=== PATIENT | male | born 1960 | race African-American/Black ===

== ENCOUNTER 2017-04-01 13:42 | Inpatient (IN) | payer OTHER ==
[~2017-04-01] VITALS: Ht 170.2 cm; Wt 81.6 kg
[~2017-04-01 13:42] MED LIST: ATENOLOL25 MG ORAL; COUMADIN1 MG ORAL; ECOTRIN325 MG ORAL; METFORMIN HCL500 M1 ORAL; SIMVASTATIN5 MG ORAL; VENTOLIN HFA18 GM INH
[2017-04-01 13:54] VITALS: BP 180/75
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
[2017-04-01] MEDS ORDERED: Morphine Sulfate 4mg/ml Inj IVP ONE (14:30)
[2017-04-01 14:40] LABS: BASOPHILS % (AUTO) 1.4 % (0.0-2.0); LYMPHOCYTES % (AUTO) 39.2 % (20.0-45.0); MEAN CORPUSCULAR HEMOGLOBIN 28.7 PG (27.0-31.0); MEAN CORPUSCULAR HGB CONC 32.2 G/DL (32.0-36.0); MEAN CORPUSCULAR VOLUME 89 FL (80-99); MEAN PLATELET VOLUME 7.1 FL (6.5-10.1); MONOCYTES % (AUTO) 12.4 % (1.0-10.0); PLATELET COUNT 228 K/UL (150-450); RED BLOOD COUNT 4.93 M/UL (4.70-6.10); RED CELL DISTRIBUTION WIDTH 12.9 % (11.6-14.8); WHITE BLOOD COUNT 5.5 K/UL (4.8-10.8)
[2017-04-01 14:54] LABS: ALANINE AMINOTRANSFERASE 24 U/L (3-41); ALBUMIN/GLOBULIN RATIO 1.3 (1.0-2.7); ANION GAP 13 (5-15); ASPARTATE AMINO TRANSFERASE 25 U/L (5-40); CARBON DIOXIDE 26 mEQ/L (20-30); CHLORIDE 99 mEQ/L (98-107); CREATININE 1.2 mg/dL (0.7-1.2); GLOMERULAR FILTRATION RATE > 60 mL/min (>60); HEMOLYSIS 8; POTASSIUM 4.3 mEQ/L (3.4-4.9); SODIUM 138 mEQ/L (135-145); TOTAL PROTEIN 7.2 g/dL (6.6-8.7)
[2017-04-01 14:56] LABS: TROPONIN I < 0.30 ng/mL (<=0.30)
[2017-04-01 15:06] LABS: CKMB 5.1 ng/mL (< 6.7)
--- NOTE | 2017-04-01 15:22 | Diagnostic Imaging Report ---
Indication: PAIN Technique: One view of the chest Comparison: none Findings: Suboptimal inspiration. The heart is borderline enlarged. Aorta is somewhat ectatic. Impression: No acute process
[2017-04-01 15:39] VITALS: BP 162/86
[2017-04-01] MEDS ORDERED: DuoNeb 0.5-3(2.5)mg/3ml neb HHN PRN (17:15)
[2017-04-01] MEDS ORDERED: Diltiazem 25mg/5ml IV PRN (17:15)
[2017-04-01] MEDS ORDERED: Miralax 17gm pkt ORAL PRN (17:15)
[2017-04-01] MEDS ORDERED: Enalaprilat 2.5mg/2ml Inj IV PRN (17:15)
[2017-04-01] MEDS ORDERED: Ketorolac 30mg Inj IV PRN (17:15)
[2017-04-01] MEDS ORDERED: Morphine Sulfate 2mg/ml Inj IVP PRN (17:15)
[2017-04-01] MEDS ORDERED: Nitroglycerin Subl 0.4mg tab (Bottle Of 25) SL PRN (17:30)
[2017-04-01] MEDS ORDERED: ASPIRIN81 MG ORAL (18:01)
[2017-04-01] MEDS ORDERED: ATENOLOL50 MG ORAL (18:06)
[2017-04-01 18:07] VITALS: BP 138/84
[2017-04-01] MEDS ORDERED: METFORMIN HCL850 M1 ORAL (18:08)
[2017-04-01] MEDS ORDERED: WARFARIN SODIUM1 MG ORAL (18:10)
[2017-04-01] MEDS ORDERED: ATORVASTATIN CA40 MG ORAL (18:12)
[2017-04-01] MEDS ORDERED: LISINOPRIL20 MG ORAL (18:13)
[2017-04-01] MEDS ORDERED: HYDROCHLOROTHIA25 MG ORAL (18:14)
[2017-04-01] MEDS ORDERED: PHENYTOIN SODI100 MG ORAL (18:16)
[2017-04-01 20:30] VITALS: BP 163/94
[2017-04-01] MEDS: NovoLOG Insulin Flexpen SUBQ SCH (21:00)
[2017-04-01] MEDS: Heparin 5000 units/ml inj SUBQ SCH (22:01)
[2017-04-01 22:24] VITALS: BP 157/96
[2017-04-02] VITALS (7 sets, daily range): BP systolic 139–163; BP diastolic 71–113
[2017-04-02] MEDS: Heparin 5000 units/ml inj SUBQ SCH (06:00)
[2017-04-02] MEDS: NovoLOG Insulin Flexpen SUBQ SCH ×3 (06:30→16:30)
[2017-04-02 07:56] LABS: BASOPHILS % (AUTO) 0.8 % (0.0-2.0); EOSINOPHILS % (AUTO) 2.6 % (0.0-3.0); LYMPHOCYTES % (AUTO) 37.8 % (20.0-45.0); MEAN CORPUSCULAR HEMOGLOBIN 29.3 PG (27.0-31.0); MEAN CORPUSCULAR HGB CONC 32.7 G/DL (32.0-36.0); MEAN CORPUSCULAR VOLUME 90 FL (80-99); MEAN PLATELET VOLUME 7.3 FL (6.5-10.1); MONOCYTES % (AUTO) 13.9 % (1.0-10.0); NEUTROPHILS % (AUTO) 44.9 % (45.0-75.0); PLATELET COUNT 207 K/UL (150-450); RED BLOOD COUNT 4.94 M/UL (4.70-6.10); RED CELL DISTRIBUTION WIDTH 12.8 % (11.6-14.8); WHITE BLOOD COUNT 5.3 K/UL (4.8-10.8)
[2017-04-02 07:59] LABS: PROTHROMBIN TIME 10.5 SEC (9.30-11.50)
[2017-04-02 08:05] LABS: CHOLESTEROL/HDL RATIO 7.5 (3.3-4.4); CRP QUANT 0.5 mg/dL (< 0.5)
[2017-04-02 08:12] LABS: TROPONIN I < 0.30 ng/mL (<=0.30)
[2017-04-02 08:15] LABS: THYROID STIMULATING HORMONE 0.865 uIU/mL (0.300-4.500)
[2017-04-02] MEDS ORDERED: Aspirin Baby 81mg ORAL SCH (09:00)
--- NOTE | 2017-04-02 09:07 | Cardiology Progress Note ---
Assessment/Plan Assessment/Plan acute los o f consciouness siezure vs syncope seizure do noncompliance with meds dvt hs dm htn cad hsi of stent hyperlipidemia orthosttic vitals anti hyeoprtensive statin ecotrin all trop neg repeat ekg echo need neuro evaluation for seizure hs and noncomopliance [id number] Objective Last 24 Hour Vital Signs Date Time Temp Pulse Resp B/P Pulse Ox O2 Delivery O2 Flow Rate FiO2 04/02/17 08:03 97.5 88 20 163/113 Room Air 04/02/17 04:30 150/90 04/02/17 04:00 97.7 72 20 151/111 97 Room Air 04/02/17 04:00 73 04/02/17 02:20 97.5 69 16 144/71 95 Room Air 04/02/17 01:48 69 16 144/71 95 Room Air 04/02/17 00:15 67 16 163/87 99 Room Air 04/01/17 22:24 71 18 157/96 98 Room Air 04/01/17 20:30 80 15 163/94 96 Room Air 04/01/17 18:07 73 17 138/84 99 Room Air 04/01/17 15:41 97.5 04/01/17 15:39 97.5 75 16 162/86 99 Room Air 04/01/17 13:54 97.5 16 180/75 99 Room Air 04/01/17 13:35 97.5 80 16 180/75 99 Room Air Intake and Output 04/01/17 04/02/17 19:00 07:00 Intake Total 0 ml 200 ml Output Total 650 ml Balance 0 ml -450 ml Intake Oral 0 ml 200 ml Output Urine Total 650 ml # Voids 2 Laboratory Tests Test 04/01/17 14:10 04/01/17 18:40 04/02/17 06:55 White Blood Count 5.5 K/UL (4.8-10.8) 5.3 K/UL (4.8-10.8) Red Blood Count 4.93 M/UL (4.70-6.10) 4.94 M/UL (4.70-6.10) Hemoglobin 14.2 G/DL (14.2-18.0) 14.5 G/DL (14.2-18.0) Hematocrit 44.0 % (42.0-52.0) 44.3 % (42.0-52.0) Mean Corpuscular Volume 89 FL (80-99) 90 FL (80-99) Mean Corpuscular Hemoglobin 28.7 PG (27.0-31.0) 29.3 PG (27.0-31.0) Mean Corpuscular Hemoglobin Concent 32.2 G/DL (32.0-36.0) 32.7 G/DL (32.0-36.0) Red Cell Distribution Width 12.9 % (11.6-14.8) 12.8 % (11.6-14.8) Platelet Count 228 K/UL (150-450) 207 K/UL (150-450) Mean Platelet Volume 7.1 FL (6.5-10.1) 7.3 FL (6.5-10.1) Neutrophils (%) (Auto) 45.0 % (45.0-75.0) 44.9 % (45.0-75.0) L Lymphocytes (%) (Auto) 39.2 % (20.0-45.0) 37.8 % (20.0-45.0) Monocytes (%) (Auto) 12.4 % (1.0-10.0) H 13.9 % (1.0-10.0) H Eosinophils (%) (Auto) 2.0 % (0.0-3.0) 2.6 % (0.0-3.0) Basophils (%) (Auto) 1.4 % (0.0-2.0) 0.8 % (0.0-2.0) D-Dimer 332 ng/mL (<500) Sodium Level 138 mEQ/L (135-145) Potassium Level 4.3 mEQ/L (3.4-4.9) Chloride Level 99 mEQ/L (98-107) Carbon Dioxide Level 26 mEQ/L (20-30) Anion Gap 13 (5-15) Blood Urea Nitrogen 17 mg/dL (7-23) Creatinine 1.2 mg/dL (0.7-1.2) Estimat Glomerular Filtration Rate > 60 mL/min (>60) Glucose Level 105 mg/dL (74-106) Calcium Level 9.0 mg/dL (8.6-10.2) Total Bilirubin 0.4 mg/dL (0.0-1.2) Aspartate Amino Transf (AST/SGOT) 25 U/L (5-40) Alanine Aminotransferase (ALT/SGPT) 24 U/L (3-41) Alkaline Phosphatase 61 U/L (40-129) Total Creatine Kinase 595 U/L (38-174) H Creatine Kinase MB 5.1 ng/mL (< 6.7) Creatine Kinase MB Relative Index 0.8 Troponin I < 0.30 ng/mL (<=0.30) < 0.30 ng/mL (<=0.30) Total Protein 7.2 g/dL (6.6-8.7) Albumin 4.1 g/dL (3.5-5.2) Globulin 3.1 g/dL Albumin/Globulin Ratio 1.3 (1.0-2.7) Urine Opiates Screen Positive (NEGATIVE) H Urine Barbiturates Screen Negative (NEGATIVE) Phencyclidine (PCP) Screen Negative (NEGATIVE) Urine Amphetamines Screen Negative (NEGATIVE) Urine Benzodiazepines Screen Negative (NEGATIVE) Urine Cocaine Screen Negative (NEGATIVE) Urine Marijuana (THC) Screen Positive (NEGATIVE) H Prothrombin Time 10.5 SEC (9.30-11.50) Prothromb Time International Ratio 1.0 (0.9-1.1) Activated Partial Thromboplast Time 31 SEC (23-33) C-Reactive Protein, Quantitative 0.5 mg/dL (< 0.5) Triglycerides Level 138 mg/dL (< 150) Cholesterol Level 330 mg/dL (< 200) H LDL Cholesterol 258 mg/dL (60-99) H HDL Cholesterol 44 mg/dL (> 60) Cholesterol/HDL Ratio 7.5 (3.3-4.4) H Thyroid Stimulating Hormone (TSH) 0.865 uIU/mL (0.300-4.500) ELOINA TOLEDO April 02, 2017 09:07
[2017-04-02] MEDS ORDERED: Lisinopril 20mg tab ORAL SCH (10:00)
--- NOTE | 2017-04-02 13:37 | Neurology Progress Note ---
Objective Physical Exam Last Vital Signs Date Time Temp Pulse Resp B/P Pulse Ox O2 Delivery O2 Flow Rate FiO2 04/02/17 11:53 77 04/02/17 11:51 97.7 20 139/98 Room Air 04/02/17 04:00 97 Laboratory Tests Test 04/01/17 14:10 04/01/17 18:40 04/02/17 06:55 White Blood Count 5.5 K/UL (4.8-10.8) 5.3 K/UL (4.8-10.8) Red Blood Count 4.93 M/UL (4.70-6.10) 4.94 M/UL (4.70-6.10) Hemoglobin 14.2 G/DL (14.2-18.0) 14.5 G/DL (14.2-18.0) Hematocrit 44.0 % (42.0-52.0) 44.3 % (42.0-52.0) Mean Corpuscular Volume 89 FL (80-99) 90 FL (80-99) Mean Corpuscular Hemoglobin 28.7 PG (27.0-31.0) 29.3 PG (27.0-31.0) Mean Corpuscular Hemoglobin Concent 32.2 G/DL (32.0-36.0) 32.7 G/DL (32.0-36.0) Red Cell Distribution Width 12.9 % (11.6-14.8) 12.8 % (11.6-14.8) Platelet Count 228 K/UL (150-450) 207 K/UL (150-450) Mean Platelet Volume 7.1 FL (6.5-10.1) 7.3 FL (6.5-10.1) Neutrophils (%) (Auto) 45.0 % (45.0-75.0) 44.9 % (45.0-75.0) L Lymphocytes (%) (Auto) 39.2 % (20.0-45.0) 37.8 % (20.0-45.0) Monocytes (%) (Auto) 12.4 % (1.0-10.0) H 13.9 % (1.0-10.0) H Eosinophils (%) (Auto) 2.0 % (0.0-3.0) 2.6 % (0.0-3.0) Basophils (%) (Auto) 1.4 % (0.0-2.0) 0.8 % (0.0-2.0) D-Dimer 332 ng/mL (<500) Sodium Level 138 mEQ/L (135-145) Potassium Level 4.3 mEQ/L (3.4-4.9) Chloride Level 99 mEQ/L (98-107) Carbon Dioxide Level 26 mEQ/L (20-30) Anion Gap 13 (5-15) Blood Urea Nitrogen 17 mg/dL (7-23) Creatinine 1.2 mg/dL (0.7-1.2) Estimat Glomerular Filtration Rate > 60 mL/min (>60) Glucose Level 105 mg/dL (74-106) Calcium Level 9.0 mg/dL (8.6-10.2) Total Bilirubin 0.4 mg/dL (0.0-1.2) Aspartate Amino Transf (AST/SGOT) 25 U/L (5-40) Alanine Aminotransferase (ALT/SGPT) 24 U/L (3-41) Alkaline Phosphatase 61 U/L (40-129) Total Creatine Kinase 595 U/L (38-174) H Creatine Kinase MB 5.1 ng/mL (< 6.7) Creatine Kinase MB Relative Index 0.8 Troponin I < 0.30 ng/mL (<=0.30) < 0.30 ng/mL (<=0.30) Total Protein 7.2 g/dL (6.6-8.7) Albumin 4.1 g/dL (3.5-5.2) Globulin 3.1 g/dL Albumin/Globulin Ratio 1.3 (1.0-2.7) Urine Opiates Screen Positive (NEGATIVE) H Urine Barbiturates Screen Negative (NEGATIVE) Phencyclidine (PCP) Screen Negative (NEGATIVE) Urine Amphetamines Screen Negative (NEGATIVE) Urine Benzodiazepines Screen Negative (NEGATIVE) Urine Cocaine Screen Negative (NEGATIVE) Urine Marijuana (THC) Screen Positive (NEGATIVE) H Prothrombin Time 10.5 SEC (9.30-11.50) Prothromb Time International Ratio 1.0 (0.9-1.1) Activated Partial Thromboplast Time 31 SEC (23-33) C-Reactive Protein, Quantitative 0.5 mg/dL (< 0.5) Triglycerides Level 138 mg/dL (< 150) Cholesterol Level 330 mg/dL (< 200) H LDL Cholesterol 258 mg/dL (60-99) H HDL Cholesterol 44 mg/dL (> 60) Cholesterol/HDL Ratio 7.5 (3.3-4.4) H Thyroid Stimulating Hormone (TSH) 0.865 uIU/mL (0.300-4.500) Impression/Recommendations Recommendations #[id number] MARGOT BROWNE April 02, 2017 13:37
[2017-04-02] MEDS ORDERED: Phenytoin 100mg cap ORAL SCH (14:00)
[2017-04-02] MEDS ORDERED: DILANTIN100 MG ORAL (15:10)
--- NOTE | 2017-04-02 15:15 | History and Physical ---
History of Present Illness General Date patient seen: April 02, 2017 Reason for Hospitalization: General Complaint Present Illness HPI 56 year old male with hx of DM, Seizure, presents to the ED c/o intermittent 10 /10 in severity localized CP x 1 week, and right calf pain 8/10 in severity x 3 days with hx of DVT. Pt. states he lives by himself, and has been out of his HTN medication and DM medication. Allergies: Coded Allergies: No Known Allergies (Unverified , 04/01/17) Medication History Scheduled Aspirin* (Aspirin*), 81 MG ORAL DAILY, (Reported) Atenolol* (Tenormin*), 50 MG ORAL DAILY, (Reported) Atorvastatin Calcium* (Atorvastatin Calcium*), 40 MG ORAL BEDTIME, (Reported) Hydrochlorothiazide* (Hydrochlorothiazide*), 25 MG ORAL DAILY, (Reported) Lisinopril (Lisinopril*), 20 MG ORAL DAILY, (Reported) Metformin Hcl* (Metformin Hcl*), 425 MG ORAL DAILY, (Reported) Phenytoin Sodium Extended* (Phenytoin Sodium Extended*), 100 MG ORAL THREE TIMES A DAY, (Reported) Warfarin Sod* (Warfarin Sod*), Unknown Dose ORAL DAILY, (Reported) Discontinued Medications Albuterol Sulfate (Ventolin Hfa), 1 PUFF INH EVERY 6 HOURS, (Reported) Discontinued Reason: Pt stopped taking med Aspirin* (Ecotrin*), Unknown Dose ORAL DAILY, (Reported) Discontinued Reason: Medication dose changed Metformin Hcl* (Metformin Hcl*), Unknown Dose ORAL TWICE A DAY, (Reported) Discontinued Reason: Medication dose changed Patient History Healthcare decision maker pt alert and oriented x4 Resuscitation status Full Code Advanced Directive on File Review of Systems All Other Systems: negative except mentioned in HPI Physical Exam General Appearance: WD/WN, no apparent distress Lines, tubes and drains: peripheral, central line HEENT: normocephalic, atraumatic Neck: non-tender, normal alignment Respiratory/Chest: chest wall non-tender, lungs clear Cardiovascular/Chest: normal peripheral pulses, normal rate Abdomen: normal bowel sounds, non tender Genitourinary/Rectal: normal genital exam, normal rectal exam Extremities: normal range of motion Skin Exam: normal pigmentation Last 24 Hour Vital Signs Date Time Temp Pulse Resp B/P Pulse Ox O2 Delivery O2 Flow Rate FiO2 04/02/17 11:53 77 04/02/17 11:53 77 04/02/17 11:51 97.7 20 20 139/98 Room Air 04/02/17 11:04 165/105 04/02/17 09:04 161/107 04/02/17 09:04 82 161/107 04/02/17 08:03 97.5 88 20 163/113 Room Air 04/02/17 07:50 87 04/02/17 04:30 150/90 04/02/17 04:00 97.7 72 20 151/111 97 Room Air 04/02/17 04:00 73 04/02/17 02:20 97.5 69 16 144/71 95 Room Air 04/02/17 01:48 69 16 144/71 95 Room Air 04/02/17 00:15 67 16 163/87 99 Room Air 04/01/17 22:24 71 18 157/96 98 Room Air 04/01/17 20:30 80 15 163/94 96 Room Air 04/01/17 18:07 73 17 138/84 99 Room Air 04/01/17 15:41 97.5 04/01/17 15:39 97.5 75 16 162/86 99 Room Air Intake and Output 04/01/17 04/02/17 19:00 07:00 Intake Total 0 ml 200 ml Output Total 650 ml Balance 0 ml -450 ml Intake Oral 0 ml 200 ml Output Urine Total 650 ml # Voids 2 Laboratory Tests Test 04/01/17 18:40 04/02/17 06:55 Urine Opiates Screen Positive (NEGATIVE) H Urine Barbiturates Screen Negative (NEGATIVE) Phencyclidine (PCP) Screen Negative (NEGATIVE) Urine Amphetamines Screen Negative (NEGATIVE) Urine Benzodiazepines Screen Negative (NEGATIVE) Urine Cocaine Screen Negative (NEGATIVE) Urine Marijuana (THC) Screen Positive (NEGATIVE) H White Blood Count 5.3 K/UL (4.8-10.8) Red Blood Count 4.94 M/UL (4.70-6.10) Hemoglobin 14.5 G/DL (14.2-18.0) Hematocrit 44.3 % (42.0-52.0) Mean Corpuscular Volume 90 FL (80-99) Mean Corpuscular Hemoglobin 29.3 PG (27.0-31.0) Mean Corpuscular Hemoglobin Concent 32.7 G/DL (32.0-36.0) Red Cell Distribution Width 12.8 % (11.6-14.8) Platelet Count 207 K/UL (150-450) Mean Platelet Volume 7.3 FL (6.5-10.1) Neutrophils (%) (Auto) 44.9 % (45.0-75.0) L Lymphocytes (%) (Auto) 37.8 % (20.0-45.0) Monocytes (%) (Auto) 13.9 % (1.0-10.0) H Eosinophils (%) (Auto) 2.6 % (0.0-3.0) Basophils (%) (Auto) 0.8 % (0.0-2.0) Prothrombin Time 10.5 SEC (9.30-11.50) Prothromb Time International Ratio 1.0 (0.9-1.1) Activated Partial Thromboplast Time 31 SEC (23-33) Troponin I < 0.30 ng/mL (<=0.30) C-Reactive Protein, Quantitative 0.5 mg/dL (< 0.5) Triglycerides Level 138 mg/dL (< 150) Cholesterol Level 330 mg/dL (< 200) H LDL Cholesterol 258 mg/dL (60-99) H HDL Cholesterol 44 mg/dL (> 60) Cholesterol/HDL Ratio 7.5 (3.3-4.4) H Thyroid Stimulating Hormone (TSH) 0.865 uIU/mL (0.300-4.500) Height (Feet): 5 Height (Inches): 7.00 Weight (Pounds): 180 Medications Current Medications Medications (Trade) Dose Ordered Sig/Jael Route PRN Reason Start Time Stop Time Status Last Admin Dose Admin Acetaminophen (Tylenol) 650 mg Q4H PRN ORAL T>100.5 04/01/17 17:15 05/01/17 17:14 Albuterol/ Ipratropium (DuoNeb 0.5-3(2.5)mg/3ml) 3 ml Q4H PRN HHN Shortness of Breath 04/01/17 17:15 04/06/17 17:14 Aspirin (ASA) 162 mg DAILY ORAL 04/02/17 09:00 05/02/17 08:59 04/02/17 09:04 Atenolol (Tenormin) 50 mg DAILY ORAL 04/02/17 09:00 05/02/17 08:59 04/02/17 09:04 Atorvastatin Calcium (Lipitor) 80 mg BEDTIME ORAL 04/02/17 21:00 05/02/17 20:59 Dextrose (Dextrose 50%) STAT PRN IV Hypoglycemia 04/01/17 17:15 05/01/17 17:14 Diltiazem HCl (Cardizem) 10 mg EVERY HOUR PRN IV heart rate more than 120, 04/01/17 17:15 05/01/17 17:14 Enalaprilat (Vasotec) 2.5 mg Q6H PRN IV sbp more than 160 04/01/17 17:15 05/01/17 17:14 04/02/17 09:04 Insulin Aspart (NovoLOG) BEFORE MEALS AND HS SUBQ 04/01/17 21:00 05/01/17 20:59 Lisinopril (Prinivil) 20 mg DAILY ORAL 04/02/17 10:00 05/02/17 09:59 04/02/17 11:04 Morphine Sulfate (Morphine Sulfate) 2 mg Q4H PRN IVP severe Pain (Pain Scale 7-10) 04/01/17 17:15 04/08/17 17:14 Nitroglycerin (Ntg) 0.4 mg Q5MIN X 3 DOSES PRN SL Prn Chest Pain 04/01/17 17:30 05/01/17 17:29 Ondansetron HCl (Zofran) 4 mg Q6H PRN IVP Nausea & Vomiting 04/01/17 17:15 05/01/17 17:14 Pantoprazole (Protonix) 40 mg DAILY ORAL 04/02/17 09:00 05/02/17 08:59 04/02/17 09:04 Phenytoin (Dilantin) 100 mg EVERY 8 HOURS ORAL 04/02/17 14:00 05/02/17 13:59 Polyethylene Glycol (Miralax) 17 gm DAILYPRN PRN ORAL Constipation 04/01/17 17:15 05/01/17 17:14 Temazepam (Restoril) 15 mg HSPRN PRN ORAL Insomnia 04/01/17 21:00 04/08/17 20:59 Assessment/Plan Problem List: (1) ACS (acute coronary syndrome) ICD Codes: I24.9 - Acute ischemic heart disease, unspecified SNOMED: 320357106 (2) Uncontrolled seizures ICD Codes: R56.9 - Unspecified convulsions SNOMED: 01606740 (3) Diabetes ICD Codes: E11.9 - Type 2 diabetes mellitus without complications SNOMED: 06941004 Assessment/Plan cardiology to see serial ekg, troponin echo neuro to see. GIULIA AERCHIGA April 02, 2017 15:15
[2017-04-02] MEDS ORDERED: Warfarin Sodium 5mg ORAL ONE (17:00)
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
[2017-04-02] MEDS ORDERED: Atorvastatin 80mg tab ORAL SCH ×2 (21:00)
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
--- NOTE | 2017-04-03 20:16 | Discharge Summary ---
Discharge Summary Hospital Course Date of Admission April 01, 2017 at 15:18 Date of Discharge April 02, 2017 at 18:30 Admitting Diagnosis CHEST PAIN ,ACUTE CORONARY SYNDROME IGOR Youssef is a 56 year old male who was admitted on April 01, 2017 at 15:18 for Chest Pain,Acute Coronary Syndrome Hospital Course [id number] Discharge Discharge Disposition Patient was discharged to Home (01) Discharge Diagnoses: Ambika Lara NP April 03, 2017 20:16
--- NOTE | 2017-04-04 02:58 | Discharge Summary 2 SIG ---
DATE OF ADMISSION: 04/01/2017 DATE OF DISCHARGE: 04/02/2017 CONSULTANTS: 1. Júnior Higgins M.D. 2. Barber Gimenez M.D. BRIEF HOSPITAL COURSE: The patient is a 56-year-old male with history of diabetes mellitus and seizure disorder, presented to ED complaining of intermittent 10/10 chest pain that has been happening for a week and also complained of right calf pain, 8/10 in severity for three days. The patient has history of DVT and lives by himself and has been out of his hypertension medications and diabetes medications. On evaluation at ED, EKG showed normal sinus rhythm with T-wave inversions and depression at the rate of 76. Troponin was negative. Chest x-ray showed no consolidation, effusion, or pneumothorax. No acute cardiopulmonary findings. D-dimer was 234. Urine toxicology was positive for THC and opiates. He was given aspirin and morphine and was admitted for continued inpatient care and management. He was seen by Dr. Gimenez. Chest pain has been intermittently present for some time and was placed back on his medications including statin and blood pressure medication and aspirin for his coronary artery disease and hypertension. He was seen by Dr. Higgins. Bilateral lower extremity venous duplex showed right and left leg with patent deep venous system. There was no evidence of thrombus. The patient was then discharged home and advised to follow up with PMD. FINAL DIAGNOSES: 1. Transient loss of consciousness, most likely representing syncope. 2. Posttraumatic seizure disorder, well controlled with current treatment. 3. Substance abuse. 4. Diabetes type 2. 5. Coronary artery disease status post angioplasty. 6. Hyperlipidemia. 7. Lumbar disc disease disease with right radiculopathy and partial right foot drop. 8. Medication noncompliance. Rod Lyons M.D. I have been assigned to dictate discharge summary on this account and I was not involved in the patient's management. Ambika Lara N.P. DR: ANUP JOB#: [id number] CC:
--- NOTE | 2017-04-04 08:39 | Cardiology Report ---
APPROVED REPORT EKG Measurement Heart [id number] MO [id number] Normal sinus rhythm Possible Left atrial enlargement Nonspecific T wave abnormality Abnormal ECG
--- NOTE | 2017-04-04 15:12 | Diagnostic Imaging Report ---
APPROVED REPORT CPT Code: 24594 Present Symptoms Lower Extremity Pain: Bilateral LEFT LEG: Venous imaging reveals a patent deep venous system. There is no evidence of thrombus within the femoral, popliteal or tibial segments. The greater saphenous vein is also within normal limits. Doppler indicates normal spontaneous flow within these segments.
--- NOTE | 2017-04-04 15:12 | Diagnostic Imaging Report ---
APPROVED REPORT CPT Code: 33431 Present Symptoms Lower Extremity Pain: Right RIGHT LEG: Venous imaging reveals a patent deep venous system. There is no evidence of thrombus within the femoral, popliteal or tibial segments. The greater saphenous vein is also within normal limits. Doppler indicates normal spontaneous flow within these segments.
--- NOTE | 2017-04-09 15:12 | Cardiology Report ---
APPROVED REPORT EXAM: Two-dimensional and M-mode echocardiogram with Doppler and color Doppler. INDICATION LV function M-Mode DIMENSIONS IVSd0.9 (0.7-1.1cm)Left Atrium (MM)4.4 (1.6-4.0cm) LVDd5.3 (3.5-5.6cm)Aortic Root3.1 (2.0-3.7cm) PWd1.4 (0.7-1.1cm)Aortic Cusp Exc.1.7 (1.5-2.0cm) LVDs3.2 (2.5-4.0cm) PWs1.9 cm Normal left ventricular chamber size, systolic function and wall motion. Left ventricular ejection fraction estimated to be 60-65 %. Moderate left ventricular hypertrophy by 2-D. Anterior Echo-free space, may be due to pericardial fat or effusion. Left and right atrial sizes at upper limits of normal. Right ventricular size is within normal limits. Mild focal aortic valve sclerosis with adequate cusp excursion. Mildly thickened mitral valve leaflets with normal excursion. Mitral annulus and aortic root calcification. Pulmonic valve not well visualized. Normal tricuspid valve structure. IVC at normal size with physiologic collapse. A color flow and spectral Doppler study was performed and revealed: Trace aortic regurgitation. Mild to moderate with 2 jets of mitral regurgitation. Mitral diastolic velocities suggest reduced left ventricular relaxation c/w mild LV diastolic dysfunction (Grade I). Trace to mild tricuspid regurgitation. Tricuspid systolic velocities suggests peak right ventricular systolic pressure of 31 mmHg. Mild pulmonic regurgitation present.
--- NOTE | 2017-04-09 15:55 | Cardiology Report ---
APPROVED REPORT EKG Measurement Heart [id number] Normal sinus rhythm T wave abnormality, consider inferior ischemia Prolonged QT Abnormal ECG
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
== END 2017-04-02 18:30 | disposition home or self-care (01) | DRG 53 ==
LOC: EDBD 13:42 → EMR 14:16 → 2E 15:18 → EDBEDREQ 15:26
DX: G40.909 Epilepsy, unspecified, not intractable, without status epilepticus (principal); I10 Essential (primary) hypertension; E78.5 Hyperlipidemia, unspecified; I25.10 Atherosclerotic heart disease of native coronary artery without angina pectoris; E11.9 Type 2 diabetes mellitus without complications; Z91.14 Patient's other noncompliance with medication regimen
CPT/HCPCS: 36415; 71010; 80053; 80061; 80300; 82550; 82553; 82962; 84443; 84484; 85025; 85379; 85610; 85730; 86140; 93005; 93306; 93971; J1815